=== PATIENT | female | born 1970 | race Caucasian/White ===

== ENCOUNTER → 2018-07-11 | Outpatient (CLI) | payer OTHER | END | disposition home or self-care (01) | LOC: C.LAB 08:29 | DX: E79.0 Hyperuricemia without signs of inflammatory arthritis and tophaceous disease (principal); E55.9 Vitamin D deficiency, unspecified; R53.83 Other fatigue; E78.49 Other hyperlipidemia; R73.01 Impaired fasting glucose ==

== ENCOUNTER 2018-07-21 14:05 | Emergency (ER) | payer OTHER ==
[2018-07-21 14:13] VITALS: O2SAT 100
--- NOTE | 2018-07-21 15:20 | C.PDOC ---
History Of Present Illness 48 year old female presents to ED for evaluation of left hand injury that occurred today. 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 She states that she applied ice and came to the ED for further evaluation. Patient denies weakness and numbness. Time Seen by Provider: 07/21/18 14:15 Chief Complaint (Nursing): Finger,Hand,&Wrist History Per: Patient History/Exam Limitations: no limitations Onset/Duration Of Symptoms: Hrs Current Symptoms Are (Timing): Still Present Quality: "Pain" Past Medical History Reviewed: Historical Data, Nursing Documentation, Vital Signs Vital Signs: Last Vital Signs Temp 98.1 F 07/21/18 14:11 Pulse 74 07/21/18 14:11 Resp 18 07/21/18 14:11 BP 158/87 H 07/21/18 14:11 Pulse Ox 100 07/21/18 14:11 - Medical History PMH: HTN Surgical History: No Surg Hx Family History: States: Unknown Family Hx - Social History Hx Tobacco Use: No Hx Alcohol Use: No Hx Substance Use: No - Immunization History Hx Tetanus Toxoid Vaccination: No Hx Influenza Vaccination: No Hx Pneumococcal Vaccination: No Review Of Systems Constitutional: Negative for: Fever, Chills, Weakness Musculoskeletal: Positive for: Hand Pain (left) Neurological: Negative for: Weakness, Numbness Physical Exam - Physical Exam Appears: Non-toxic, No Acute Distress Skin: Normal Color, Warm, Dry Head: Atraumatic, Normacephalic Neck: Normal ROM, Supple Chest: Symmetrical, No Deformity Respiratory: No Accessory Muscle Use Extremity: Normal ROM, Capillary Refill (<2 seconds), Swelling (swelling and hemotoma to the left dorsal hand between the 4th and 5th metacarpels; tender to palpation) Pulses: Left Radial: Normal, Right Radial: Normal Neurological/Psych: Oriented x3, Normal Speech, Normal Cognition, Normal Motor, Normal Sensation ED Course And Treatment O2 Sat by Pulse Oximetry: 100 (in RA) - Other Rad Left Hand X-ray X-Ray: Interpreted by Me, Viewed By Me Interpretation: IMPRESSION: Normal left hand radiographs. Medical Decision Making Medical Decision Making: Impression: 48 year old female with left hand injury. Plan: Left hand X-ray Xray showed no fracture Patient stable for discharge and able to return to work Disposition Counseled Patient/Family Regarding: Diagnosis, Need For Followup, Rx Given - Disposition Referrals: Jesus Uribe MD [Staff Provider] - Disposition: HOME/ ROUTINE Disposition Time: 15:39 Condition: GOOD Additional Instructions: Your xray was normal, no fracture. Please apply ice to area 15 minutes three times a day. Take Motrin as needed for pain every 6 hours, with food to not upset stomach. Follow up with orthopedic if pain persists over one week. Prescriptions: Ibuprofen [Motrin] 600 mg PO Q8 #30 tab Instructions: Contusion (DC) Forms: apartum (Kazakh) - POA Present On Arrival: Falls Or Trauma - Clinical Impression Clinical Impression: Hand contusion - PA / [employer] / Resident Statement MD/DO has reviewed & agrees with the documentation as recorded. (Nikki Gao) - Scribe Statement The provider has reviewed the documentation as recorded by the Scribe (Nikki Gao) All medical record entries made by the Scribe were at my direction and personally dictated by me. I have reviewed the chart and agree that the record accurately reflects my personal performance of the history, physical exam, medical decision making, and the department course for this patient. I have also personally directed, reviewed, and agree with the discharge instructions and disposition.
[2018-07-21 15:49] VITALS: BP 163/88; PULSE 69; RESP 17; TEMP 97.7
--- NOTE | 2018-07-21 15:51 | RAD ---
PROCEDURE: Left Hand Radiographs. HISTORY: Posttraumatic and pain. Fifth COMPARISON: None. TECHNIQUE: 3 views obtained. FINDINGS: BONES: Normal. No fracture. JOINTS: Normal. No osteoarthritic changes. SOFT TISSUES: Normal. OTHER FINDINGS: None. IMPRESSION: Normal left hand radiographs.
== END 2018-07-21 15:47 | disposition home or self-care (01) ==
LOC: C.ER 14:05
DX: S60.222A Contusion of left hand, initial encounter (principal); W22.8XXA Striking against or struck by other objects, initial encounter; Y92.238 Other place in hospital as the place of occurrence of the external cause; Y99.0 Civilian activity done for income or pay